=== PATIENT | female | born 1970 | race Caucasian/White ===

== ENCOUNTER 2016-08-07 17:02 | Inpatient (IN) | payer OTHER ==
[~2016-08-07] VITALS: Ht 157.5 cm; Wt 83.3 kg
[2016-08-07 18:14] LABS: HEMATOCRIT 41.9 % (36.0-46.0); MCH 27.7 PG (29.0-34.0); MCHC 33.2 G/DL (30.0-36.0); MCV 83.6 FL (83-99); PLATELET COUNT 287 K/uL (156-360); RBC DIS.WIDTH-CV 13.4 % (11.8-14.6); RBC DIS.WIDTH-SD 41.1 % (39-53); RED BLOOD COUNT 5.01 M/uL (3.80-5.20); WHITE BLOOD COUNT 10.6 K/uL (4.1-10.2)
[2016-08-07 18:25] LABS: CHLORIDE 104 mEq/L (99-109); POTASSIUM 3.9 mEq/L (3.7-5.4); SODIUM 138 mEq/L (136-147)
[2016-08-07 18:26] LABS: D-DIMER ELISA < 0.15 mg/L FEU (< 0.57)
[2016-08-07 18:27] LABS: GLUCOSE 97 mg/dL (70-99)
[2016-08-07 18:29] LABS: ANION GAP 14 MEQ/L (2-14); TOTAL BILIRUBIN 0.3 mg/dL (0.0-1.0)
[2016-08-07 18:31] LABS: ALKALINE PHOSPHATASE 60 IU/L (3-129); GFR ESTIMATE (CALCULATED) > 59 mL/min/
[2016-08-07 18:32] LABS: UREA NITROGEN (BUN) 12 mg/dL (9-23)
[2016-08-07] MEDS ORDERED: ZOCOR40 MG PO (19:04)
[2016-08-07] MEDS ORDERED: BUSPAR15 MG PO (19:04)
[2016-08-07] MEDS ORDERED: LEXAPRO20 MG PO ×2 (19:04)
[2016-08-07] MEDS ORDERED: STRATTERA40 MG PO (19:04)
[2016-08-07] MEDS ORDERED: DICLOFENAC SOD100 MG PO (19:04)
[2016-08-07] MEDS ORDERED: [UNRECOGNIZED DRUG - OTHER] PO (19:05)
[2016-08-07 19:40] LABS: ADD MIUA? YES; BILIRUBIN NEGATIVE; BLOOD NEGATIVE; COLOR YELLOW ((YELLOW)); GLUCOSE (STRIP) NEGATIVE; KETONES NEGATIVE; LEUKOCYTES NEGATIVE; NITRITE NEGATIVE; PROTEIN (STRIP) NEGATIVE; SPECIFIC GRAVITY 1.011 (1.000-1.030); UROBILINOGEN 0.2 MG/DL (0.2-1.0)
[2016-08-07 19:42] VITALS: BP 158/77; BP 189/88
[2016-08-07 20:00] LABS: AMPHETAMINE NEGATIVE (500 ng/mL); BARBITURATES NEGATIVE (200 ng/mL); BENZODIAZEPINES NEGATIVE (150 ng/mL); COCAINE NEGATIVE (150 ng/mL); INTERNAL CONTROLS VALID? YES; METHADONE NEGATIVE (200 ng/mL); METHAMPHETAMINE NEGATIVE (500 ng/mL); OPIATES (MORPHINE) NEGATIVE (100 ng/mL); OXYCODONE NEGATIVE (100 ng/mL); PHENCYCLIDINE NEGATIVE (25 ng/mL); PROPOXYPHENE NEGATIVE (300 ng/mL); THC CANNABINOIDS NEGATIVE (50 ng/mL); TRICYCLIC ANTIDEPRESSANTS NEGATIVE (300 ng/mL)
[2016-08-07 20:07] LABS: INTERNAL CONTROL VALID? YES
[2016-08-07 20:22] LABS: UCUL ADDED? NO
[2016-08-08 07:30] VITALS: BP 119/64
[2016-08-08 15:34] VITALS: BP 132/87
[2016-08-09 07:43] VITALS: BP 128/66
[2016-08-09] MEDS ORDERED: BUSPAR15 MG PO (10:14)
[2016-08-09] MEDS ORDERED: BUPROPION XL150 MG PO (10:14)
== END 2016-08-09 13:55 | disposition home or self-care (01) | DRG 881 ==
LOC: EME → EDBD 17:02 → EDOF 18:48 → 1WEST 18:48
PROVIDERS: Emergency Medicine
DX: F32.9 Major depressive disorder, single episode, unspecified (principal); F18.10 Inhalant abuse, uncomplicated; F15.10 Other stimulant abuse, uncomplicated; F11.10 Opioid abuse, uncomplicated; F13.10 Sedative, hypnotic or anxiolytic abuse, uncomplicated; E66.9 Obesity, unspecified; Z68.33 Body mass index [BMI] 33.0-33.9, adult
CPT/HCPCS: 80053; 81003; 84703; 85027; 85379; 93005; 97150 GO; 97165 GO; 99281; 99285